=== PATIENT | male | born 1940 | race Caucasian/White ===

== ENCOUNTER → 2018-10-11 12:03 | Outpatient (CLI) | payer MEDICARE, OTHER ==
--- NOTE | ~2018-10-11 | EC ---
PATIENT:PARAS GORMAN DATE OF SERVICE: 10/11/18 SEX: M MEDICAL RECORD: [id number] DATE OF : 40 [facility] AGE [facility] PAT[facility] 77 ADMISSION DATE: 10/11/18 REFERRING PHYSICIAN: INTERPRETING PHYSICIAN: BENEDICT LAM MD ECHOCARDIOGRAM REPORT ECHO CHARGES 4 ECHO COMPLETE Date: 10/11/18 CLINICAL DIAGNOSIS: MR/TR/AI H/O HTN ECHOCARDIOGRAPHIC MEASUREMENTS (adult normal given) AC root (d.<3.7cm) 3.4 cm LV Septum d (<1.2 cm> 1.3 cm Valve Excursion 2.4 cm LV Septum (systole) 2.2 cm Left Atria (s.<4.0cm> 3.7 cm LVPW d(<1.2cm) 1.3 cm RV (d.<2.3cm) 2.7 cm LVPW (sytole) 2.0 cm LV diastole(<5.6CM) 4.9 cm MV E-F(>70mm/sec) cm LV systole 2.2 cm LVOT Diameter 1.9 cm MV exc.(>10mm) cm Est.ejection fraction (50-75%) % DOPPLER: LVIT cm/sec A 85.0 cm/sec E 67.0 cm/sec LA cm/sec RVSP 33.4 mmHg LVOT 150 cm/sec AOP1/2T m/s Asc. Ao 223 cm/sec RVOT 66.0 cm/sec RA cm/sec PA 116 cm/sec AV Gradient Peak 20.0 mmHg AV Mean 8.4 mmHg AV Area 2.4 cm MV Gradient Peak 5.3 mmHg MV Mean 1.6 mmHg MV Area cm COMMENTS: OP - HC Oracle Consultant: Lauren JACKSONOE Internal Carver: 1 Dr. Lam TAPE# PACS Pericardial Effusion N DATE OF SERVICE: 10/11/2018 PROCEDURE: Echocardiogram. FINDINGS: 1. Left ventricular chamber size is within normal limits. Left ventricular systolic function is normal. Overall ejection fraction estimated at 60%. 2. Left atrium, right atrium, and right ventricular chamber sizes are within normal limits. 3. Valvular structures have normal structure and motion. ECHOCARDIOGRAM REPORT [id number] PARAS GORMAN 4. Doppler interrogation reveals mild aortic insufficiency, mild tricuspid regurgitation, mild mitral regurgitation, no other valvular insufficiency or stenosis. Pulmonary systolic pressure is estimated 33 mmHg. 5. No evidence of pericardial effusion or left ventricular thrombus. TRANSINT:[id number] Voice Confirmation ID: [id number] DOCUMENT ID: [id number] BENEDICT LAM MD CC: [id number] DICTATION DATE: 10/17/18 1031 SPACE OFFICER: 10/17/18 1134 DEP CLI 10/11/18 [facility] [address] [id number]
== END | disposition home or self-care (01) ==
LOC: D.HCCARDIO 12:03
PROVIDERS: ATTEND Internal Medicine Interventional Cardiology
DX: I10 Essential (primary) hypertension (principal)

== ENCOUNTER → 2019-06-14 08:39 | Outpatient (CLI) | payer MEDICARE, OTHER | END | disposition home or self-care (01) | LOC: D.US 08:39 | PROVIDERS: ATTEND Family Medicine | DX: N18.9 Chronic kidney disease, unspecified (principal) ==